=== PATIENT | female | born 1985 | race Caucasian/White ===

== ENCOUNTER → 2018-02-15 | Outpatient (CLI) | payer OTHER | LOC: CLAB 15:22 | PROVIDERS: ATTEND Internal Medicine | DX: M79.672 Pain in left foot (principal) | CPT/HCPCS: 73630-PO ==

== ENCOUNTER → 2018-06-18 | Outpatient (CLI) | payer OTHER | LOC: CIMAGING 15:50 | PROVIDERS: ATTEND Internal Medicine | DX: R05 Cough (principal); J98.4 Other disorders of lung | CPT/HCPCS: 71046-PO ==

== ENCOUNTER → 2018-12-24 | Outpatient (CLI) | payer OTHER | LOC: CIMAGING 17:43 | PROVIDERS: ATTEND Internal Medicine | DX: Z20.1 Contact with and (suspected) exposure to tuberculosis (principal) | CPT/HCPCS: 71046-PO ==